=== PATIENT | male | born 1990 | race Caucasian/White ===

== ENCOUNTER 2017-07-05 18:55 | Inpatient (IN) | payer OTHER ==
[~2017-07-05] VITALS: Ht 175.2 cm; Wt 84.1 kg
[2017-07-05 19:12] VITALS: BP 136/96
[2017-07-05] MEDS ORDERED: METOPROLOL SUCC50 M1 PO (19:13)
[2017-07-05 19:37] LABS: BASO % 0.5 % (0.0-1.0); EOS # 0.2 10*3/uL (0.0-0.4); EOS % 3.8 % (1.0-4.0); HEMATOCRIT 41.6 % (42.0-52.0); HEMOGLOBIN 14.5 g/dl (14.0-18.0); LYMPH # 1.6 10*3/uL (1.3-4.4); LYMPH % 25.7 % (27.0-41.0); MEAN CELL VOLUME 85.1 fl (80.0-94.0); MEAN CORPUSCULAR HGB 29.7 pg (27.0-31.0); MEAN CORPUSCULAR HGB CONC 34.9 g/dl (33.0-37.0); MEAN PLATELET VOLUME 9.1 fl (9.6-12.3); MONO # 0.6 10*3/uL (0.1-1.0); MONO % 9.5 % (3.0-9.0); NEUT # 3.8 10*3/uL (2.3-7.9); PLATELET COUNT AUTOMATED 188 10*3/uL (130-400); RED BLOOD COUNT 4.89 10*6/uL (4.50-5.90); RED CELL DISTRI WIDTH 13.3 % (0-14.5); WHITE BLOOD COUNT 6.3 10*3/uL (4.8-10.8)
[2017-07-05 19:53] LABS: ALKALINE PHOSPHATASE 78 U/L (45-117); BUN 15 mg/dl (7-24); CHLORIDE 107 mmol/L (98-107); CREATININE 0.99 mg/dL (0.70-1.30); POTASSIUM 4.1 mmol/L (3.5-5.1); SGOT/AST 59 IU/L (3-35); SGPT/ALT 90 U/L (12-78); SODIUM 141 mmol/L (136-145); TOTAL PROTEIN 7.5 gm/dL (6.4-8.2)
[2017-07-05 19:58] LABS: ACETAMINOPHEN (TYLENOL) < 2.0 ug/ml (10-30); ETHYL ALCOHOL < 3.0 mg/dl (<3)
[2017-07-05 20:29] LABS: BILIRUBIN NEGATIVE (NEGATIVE); BLOOD NEGATIVE (NEGATIVE); CLARITY CLEAR (CLEAR); COLOR YELLOW (YELLOW); GLUCOSE NEGATIVE (NEGATIVE); KETONE NEGATIVE (NEGATIVE); LEUKO ESTERASE NEGATIVE (NEGATIVE); NITRITE NEGATIVE (NEGATIVE); PH 6.5 (5.0-9.0); SPECIFIC GRAVITY <= 1.005 (1.005-1.030); UROBILINOGEN 0.2 E.U./dl (0.2-1.0)
[2017-07-05 20:34] LABS: BACTERIA TRACE; WBC 0-2 wbc/hpf (0-5)
[2017-07-05 20:39] LABS: URINE AMPHETAMINES < 1000 (1000ng/ml); URINE BARBITURATES < 200 (200ng/ml); URINE BENZODIAZEPINES < 200 (200ng/ml); URINE CANNABINOIDS (THC) < 50 (50ng/ml); URINE COCAINE < 300 (300ng/ml); URINE METHADONE < 300 (300ng/ml); URINE OPIATES < 300 (300ng/ml)
[2017-07-05 20:40] LABS: URINE PHENCYCLIDINE < 25 (25ng/ml)
[2017-07-05 21:20] VITALS: BP 129/84
[2017-07-05] MEDS ORDERED: SEROQUEL300 MG PO (21:30)
[2017-07-05] MEDS ORDERED: BACTROBAN CREAM15 GM T (21:42)
[2017-07-05] MEDS ORDERED: AUGMENTIN 500500 MG PO (21:49)
[2017-07-06] VITALS: BP 120/74; BP 120/82; BP 129/84
[2017-07-06 04:01] VITALS: BP 116/76
[2017-07-06 08:00] VITALS: BP 115/72
[2017-07-06 16:00] VITALS: BP 143/71
[2017-07-07] VITALS: BP 115/65
[2017-07-07 07:01] LABS: ALBUMIN 3.2 gm/dl (3.1-4.5); ALKALINE PHOSPHATASE 66 U/L (45-117); BUN 21 mg/dl (7-24); CHLORIDE 106 mmol/L (98-107); CREATININE 0.84 mg/dL (0.70-1.30); POTASSIUM 4.2 mmol/L (3.5-5.1); SGOT/AST 43 IU/L (3-35); SGPT/ALT 84 U/L (12-78); SODIUM 140 mmol/L (136-145); TOTAL PROTEIN 6.4 gm/dL (6.4-8.2)
[2017-07-07 07:07] LABS: HEPATITIS B SURFACE AG Negative (Negative); HEPATITIS C VIRUS ANTIBODY <0.1 s/co (0.0-0.9)
[2017-07-07 16:00] VITALS: BP 118/75; BP 118/757
[2017-07-07 20:00] VITALS: BP 139/92
[2017-07-08] VITALS: BP 119/71
[2017-07-08 06:07] LABS: BASO # 0.1 10*3/uL (0.0-0.1); BASO % 0.9 % (0.0-1.0); EOS # 0.4 10*3/uL (0.0-0.4); EOS % 4.8 % (1.0-4.0); HEMATOCRIT 38.3 % (42.0-52.0); HEMOGLOBIN 13.7 g/dl (14.0-18.0); LYMPH # 2.7 10*3/uL (1.3-4.4); LYMPH % 33.7 % (27.0-41.0); MEAN CELL VOLUME 84.5 fl (80.0-94.0); MEAN CORPUSCULAR HGB 30.2 pg (27.0-31.0); MEAN CORPUSCULAR HGB CONC 35.8 g/dl (33.0-37.0); MEAN PLATELET VOLUME 9.6 fl (9.6-12.3); MONO # 0.6 10*3/uL (0.1-1.0); MONO % 7.3 % (3.0-9.0); NEUT # 4.2 10*3/uL (2.3-7.9); NEUT % 51.6 % (47.0-73.0); PLATELET COUNT AUTOMATED 207 10*3/uL (130-400); RED BLOOD COUNT 4.53 10*6/uL (4.50-5.90); WHITE BLOOD COUNT 8.1 10*3/uL (4.8-10.8)
[2017-07-08 08:00] VITALS: BP 104/66
[2017-07-08 12:00] VITALS: BP 121/84; BP 126/71
[2017-07-08 16:00] VITALS: BP 132/87
[2017-07-08 20:00] VITALS: BP 125/91
[2017-07-09] VITALS: BP 113/68
[2017-07-09 08:00] VITALS: BP 128/68
[2017-07-09 12:00] VITALS: BP 120/62
[2017-07-09 16:00] VITALS: BP 134/80
[2017-07-09] MEDS ORDERED: NATURE'S BLEND F1 MG PO (16:13)
[2017-07-09] MEDS ORDERED: NATURE'S BLEND100 M2 PO (16:13)
[2017-07-09] MEDS ORDERED: SEROQUEL300 MG PO (16:13)
[2017-07-09] MEDS ORDERED: ATARAX,VISTARIL50 MG PO (16:13)
[2017-07-09] MEDS ORDERED: THERA TABLET400 MCG PO (16:13)
[2017-07-09] MEDS ORDERED: METHOCARBAMOL750 M1 PO (16:13)
[2017-07-09] MEDS ORDERED: ROPINIROLE HYD0.5 MG PO (16:13)
[2017-07-09] MEDS ORDERED: AUGMENTIN 500500 MG PO (16:13)
[2017-07-09 20:00] VITALS: BP 132/85
[2017-07-10] VITALS: BP 107/58
[2017-07-10 07:08] LABS: CREATININE 1.05 mg/dL (0.70-1.30)
== END 2017-07-10 07:53 | disposition home or self-care (01) | DRG 897 ==
LOC: ED 18:55 → EDHOLD 19:30 → 5E 19:30
PROVIDERS: Internal Medicine; Nurse Practitioner Family; ADMIT Internal Medicine
DX: F11.23 Opioid dependence with withdrawal (principal); L97.129 Non-pressure chronic ulcer of left thigh with unspecified severity; F13.10 Sedative, hypnotic or anxiolytic abuse, uncomplicated; R74.0 Nonspecific elevation of levels of transaminase and lactic acid dehydrogenase [LDH]; I10 Essential (primary) hypertension; G47.00 Insomnia, unspecified; Z71.6 Tobacco abuse counseling; Z72.0 Tobacco use; Z79.899 Other long term (current) drug therapy

== ENCOUNTER 2019-05-01 14:20 | Emergency (ER) | payer OTHER ==
[~2019-05-01] VITALS: Ht 177.8 cm; Wt 79.4 kg
[~2019-05-01 14:20] MED LIST: ATARAX,VISTARIL50 MG PO; AUGMENTIN 500500 MG PO; BACTROBAN CREAM15 GM T; METHOCARBAMOL750 M1 PO; METOPROLOL SUCC50 M1 PO; NATURE'S BLEND F1 MG PO; NATURE'S BLEND100 M2 PO; ROPINIROLE HYD0.5 MG PO; SEROQUEL300 MG PO; THERA TABLET400 MCG PO
== END 2019-05-01 16:22 | disposition home or self-care (01) ==
LOC: ED 14:20
DX: S92.252A Displaced fracture of navicular [scaphoid] of left foot, initial encounter for closed fracture (principal); F17.200 Nicotine dependence, unspecified, uncomplicated; Z88.1 Allergy status to other antibiotic agents; Z79.899 Other long term (current) drug therapy; Z79.2 Long term (current) use of antibiotics; W19.XXXA Unspecified fall, initial encounter; Y93.89 Activity, other specified; Y92.098 Other place in other non-institutional residence as the place of occurrence of the external cause; Y99.8 Other external cause status